=== PATIENT | male | born 1990 | race Caucasian/White ===

== ENCOUNTER 2017-01-28 16:36 | Outpatient (CLI) ==
[2016-01-13 20:32] VITALS: BMI 33.3
== END 2017-01-28 16:37 | disposition home or self-care (01) ==
LOC: LAB 16:36
PROVIDERS: ATTEND Nurse Practitioner Family
DX: J02.9 Acute pharyngitis, unspecified (principal)
CPT/HCPCS: 87651; 87880

== ENCOUNTER 2017-03-19 12:30 | Outpatient (CLI) ==
[2016-01-13 20:32] VITALS: BMI 33.3
== END 2017-03-19 12:31 | disposition home or self-care (01) ==
LOC: LAB 12:30
PROVIDERS: ATTEND Nurse Practitioner Family
DX: M25.562 Pain in left knee (principal); M13.162 Monoarthritis, not elsewhere classified, left knee
CPT/HCPCS: 36415; 84550

== ENCOUNTER 2018-03-04 11:52 | Emergency (ER) ==
[2018-03-04 11:52] VITALS: BMI 33.3
[2018-03-04 11:54] VITALS: BP 150/87; TEMP 97
--- NOTE | 2018-03-04 11:58 | ED.PDOC ---
General ED Provider: Dr. MOE DOMINGUEZ Chief Complaint: Tooth Problem Stated Complaint: dental pain Time Seen by Physician: 12:00 (may present at all time) Mode of Arrival: Walk-In Information Source: Patient Exam Limitations: No limitations Primary Care Provider: MEGAN GUARDADO Nursing and Triage Documentation Reviewed and Agree: Yes Does patient meet sepsis criteria?: Yes If yes, has appropriate treatment been initiated?: No System Inflammatory Response Syndrome: Not Applicable Sepsis Protocol: For patient's 13 years and over: Temp is 96.8 and below OR 101 and greater Pulse >90 BPM Resp >20/minute Acutely Altered Mental Status Are patient's symptoms suggestive of a new infection, such as: -Pneumonia -Skin, Soft Tissue -Endocarditis -UTI -Bone, Joint Infection -Implantable Device -Acute Abdominal Infection -Wound Infection -Meningitis -Blood Stream Catheter Infection -Unknown EENT Complaint Exam - Dental/Oral Complaint/Exam Mechanism of Injury: No known trauma Symptoms Are: Still present Initial Severity: Moderate Current Severity: Moderate Character: Reports: Aching, Throbbing Aggravating: Reports: None Alleviating: Reports: None Associated Signs and Symptoms: Denies: Swelling, Discharge, Fever, Foul odor, Foul taste in mouth Cardiac Risk Factors: Reports: None Dental/Oral Surgical History: Reports: None Tooth Findings: Present: Gross caries Cervical Lymphadenopathy Present: No Facial Swelling Present: No Bleeding Present: No Septal Hematoma: No Foreign Body Present: No Dysphagia Present: No Drooling Present: No Asymmetrical Tonsillar Swelling Present: No Uvula Midline: Yes Serena-tonsillar Fluctuence: No Trismus Present: No Palatal Petechiae Present: No Scarlatinaform Rash Present: No Lesions: Absent: Lip, Tongue Exanthem: Absent: Gums, Buccal Mucosa Vesicles: Absent: Lip, Gums, Tongue Teeth Picture: 1 - decay Differential Diagnoses: Dental Caries Review of Systems - Review Of Systems Constitutional: Reports: No symptoms Eyes: Reports: No symptoms Ears, Nose, Mouth, Throat: Reports: No symptoms Respiratory: Reports: No symptoms Cardiac: Reports: No symptoms GI: Reports: No symptoms : Reports: No symptoms Musculoskeletal: Reports: No symptoms Skin: Reports: No symptoms Neurological: Reports: No symptoms Endocrine: Reports: No symptoms Hematologic/Lymphatic: Reports: No symptoms All Other Systems: Reviewed and Negative Past Medical History - Past Medical History Previously Healthy: Yes Endocrine: Reports: None Cardiovascular: Reports: None Respiratory: Reports: None Hematological: Reports: None Gastrointestinal: Reports: None Genitourinary: Reports: None Neuro/Psych: Reports: None Musculoskeletal: Reports: None Cancer: Reports: None - Surgical History General Surgical History: Reports: Unknown - Family History Family History: Reports: Unknown - Social History Smoking Status: Never smoker Hx Substance Use: No (has done marjuana) Alcohol Screening: None Physical Exam - Physical Exam Appearance: Well-appearing, No pain distress, Well-nourished Eyes: AURELIO, EOMI, Conjunctiva clear ENT: Ears normal, Nose normal, Oropharynx normal Respiratory: Airway patent, Breath sounds clear, Breath sounds equal, Respirations nonlabored Cardiovascular: RRR, Pulses normal, No rub, No murmur GI/: Soft, Nontender, No masses, Bowel sounds normal, No Organomegaly Musculoskeletal: Normal strength, ROM intact, No edema, No calf tenderness Skin: Warm, Dry, Normal color Neurological: Sensation intact, Motor intact, Reflexes intact, Cranial nerves intact, Alert, Oriented Psychiatric: Affect appropriate, Mood appropriate Critical Care Note - Critical Care Note Total Time (mins): 0 Course - Course Vital Signs: Temp Pulse Resp BP Pulse Ox 03/04/18 11:52 97.0 F L 76 20 150/87 H 96 Departure - Departure Time of Disposition: 11:58 Disposition: HOME SELF-CARE Discharge Problem: Toothache Instructions: Toothache (ED) Condition: Good Pt referred to PMD for follow-up: Yes IPMP verified?: No Additional Instructions: Please call your Family Physician as soon as possible to schedule a follow-up appointment. Allergies/Adverse Reactions: Allergies No Known Allergies Allergy (Verified 03/04/18 11:55) Home Medications: Ambulatory Orders 1 [No Reported Medications] 03/04/18
== END 2018-03-04 12:11 | disposition home or self-care (01) ==
LOC: ED 11:52
DX: K08.89 Other specified disorders of teeth and supporting structures (principal); K02.9 Dental caries, unspecified
CPT/HCPCS: 99282

== ENCOUNTER 2018-05-05 21:01 | Outpatient (CLI) ==
[2018-05-05 21:32] VITALS: BMI 34.0
== END 2018-05-05 21:08 | disposition critical access hospital (66) ==
LOC: AMBL 21:01
PROVIDERS: ATTEND Family Medicine
DX: M25.512 Pain in left shoulder (principal); S50.811A Abrasion of right forearm, initial encounter; X31.XXXA Exposure to excessive natural cold, initial encounter; W22.8XXA Striking against or struck by other objects, initial encounter; V48.5XXA Car driver injured in noncollision transport accident in traffic accident, initial encounter

== ENCOUNTER 2018-05-05 21:29 | Emergency (ER) ==
[2018-05-05 21:32] VITALS: BMI 34.0
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
[2018-05-05 21:37] VITALS: BP 149/98; TEMP 97.9
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
--- NOTE | 2018-05-05 21:58 | DI ---
Exam: Single view left shoulder. Date: 05/05/2018. Comparison: None. HISTORY: Left shoulder pain and tenderness. FINDINGS: A single frontal view of the left shoulder was submitted. The soft tissues are within normal limits. The mineralization is normal. The acromioclavicular and glenohumeral joints are maintained. No fracture or dislocation is observed. Impression: No acute osseous abnormality in the left shoulder.
[2018-05-05] MEDS ORDERED: ATIVAN PO STA (22:12)
== END 2018-05-05 22:37 | disposition home or self-care (01) ==
LOC: ED 21:29
DX: S40.012A Contusion of left shoulder, initial encounter (principal); T75.1XXA Unspecified effects of drowning and nonfatal submersion, initial encounter; V49.9XXA Car occupant (driver) (passenger) injured in unspecified traffic accident, initial encounter; T69.8XXA Other specified effects of reduced temperature, initial encounter
CPT/HCPCS: 99283

== ENCOUNTER 2018-07-24 13:23 | Emergency (ER) ==
[2018-07-24 13:25] VITALS: BP 141/96; TEMP 98.1; BMI 36.3
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
== END 2018-07-24 13:47 | disposition left against medical advice (07) ==
LOC: ED 13:23
DX: L05.01 Pilonidal cyst with abscess (principal)
CPT/HCPCS: 99284